=== PATIENT | male | born 1955 | race Caucasian/White ===

== ENCOUNTER → 2020-10-06 02:03 | Outpatient (CLI) | payer OTHER, MEDICARE, SELFPAY ==
[2020-10-07 14:52] LABS: SARS-CoV-2 RNA PCR Negative
== END ==
PROVIDERS: PCP Internal Medicine; Visit Provider Surgery
DX: Z01.812 Encounter for preprocedural laboratory examination (principal); Z20.822 Contact with and (suspected) exposure to COVID-19
CPT/HCPCS: C9803; U0003; U0005

== ENCOUNTER 2020-10-06 08:22 | Outpatient (CLI) | payer OTHER, MEDICARE, SELFPAY ==
--- NOTE | 2020-10-06 08:47 | ECG_ITS ---
Measurements Intervals [place] Rate: 70 P: 68 WV: 176 QRS: 34 QRSD: 97 T: 64 QT: 407 QTc: 440 Interpretive Statements SINUS RHYTHM ATRIAL AND VENTRICULAR PREMATURE COMPLEXES BORDERLINE ECG Electronically Signed On 10-06-2020 9:37:19 CDT by Jose Rodriguez D.O.
[2020-10-06 08:50] LABS: Hematocrit 35.8 % (42.0-52.0); Hemoglobin 11.7 g/dL (14.0-18.0)
[2020-10-06 09:00] LABS: INR 0.9; Potassium 4.7 mmol/L (3.4-5.0); Prothrombin Time 12.8 Seconds (11.1-14.7)
[2020-10-06 09:01] LABS: Partial Thromboplastin Time 30.2 SECONDS (22.3-36.8)
[2020-10-06 09:11] LABS: Anion Gap 4 mmol/L (8-16); Blood Urea Nitrogen 22 mg/dL (9-20); Calcium 9.4 mg/dL (8.4-10.2); Carbon Dioxide 28 mmol/L (22-30); Chloride 106 mmol/L (98-107); Estimated Glomerular Filt Rate > 60; Glucose 114 mg/dL (75-110); Sodium 138 mmol/L (137-145)
== END 2020-10-06 08:23 | disposition home or self-care (01) ==
PROVIDERS: PCP Internal Medicine; Visit Provider Anesthesiology
DX: E11.9 Type 2 diabetes mellitus without complications (principal); Z79.4 Long term (current) use of insulin; I12.9 Hypertensive chronic kidney disease with stage 1 through stage 4 chronic kidney disease, or unspecified chronic kidney disease; Z01.818 Encounter for other preprocedural examination; N18.30 Chronic kidney disease, stage 3 unspecified; R94.31 Abnormal electrocardiogram [ECG] [EKG]
CPT/HCPCS: 36415; 80048; 85014; 85018; 85610; 85730; 93005

== ENCOUNTER 2020-10-09 02:11 | Day surgery (SDC) | payer OTHER, MEDICARE, SELFPAY ==
[2020-10-05 12:53] VITALS: BMI 50.4
[2020-10-09 08:34] VITALS: BP 109/71; PULSE 69; RESP 16; TEMP 36.6; O2SAT 98
--- NOTE | 2020-10-09 08:38 | WPDHPUPDATE1 ---
History and Physical Update Update Date/Time: 10/09/20 08:38 History and Physical has been reviewed, including an updated exam of the patient. There are NO changes in the patient's condition. Risks, benefits, and alternatives have been discussed and questions answered. Patient agrees to proceed with procedure.
[2020-10-09] MEDS: LACTATED RINGERS 1,000 ML 30 ML IV CONT (09:12)
[2020-10-09 09:14] LABS: Glucose Point of Care 115 (65-105)
--- NOTE | 2020-10-09 09:35 | WPDANESEPPF ---
Anes - Initial Pre Proc Eval Procedure: Operation Date: 10/09/20 10:15 Proposed Procedures p Excision Of Back Mass - Rolando Alvarez DO Date/Time: 10/09/20 09:35 Surgeon: Rolando Alvarez DO Pre Op Diagnosis: Back Mass Patient Data Age: 65 Gender: M Height: 5 ft 11 in Weight: 162.4 kg Last Vital Signs Temp 98 F 10/09/20 08:34 Pulse 69 10/09/20 08:34 Resp 16 10/09/20 08:34 BP 109/71 10/09/20 08:34 Pulse Ox 98 10/09/20 08:34 Allergies Allergy/AdvReac Type Severity Reaction Status Date / Time cephalexin AdvReac Mild Itching Verified 10/09/20 08:48 Latex, Natural Rubber AdvReac Unknown STATED Verified 10/09/20 08:48 SKIN JUST CRACKED AND BROKE DOWN, NO RASH OR SOB Home Medications Medication Instructions Recorded Confirmed Type cholecalciferol (vitamin D3) 50 50 mcg PO DAILY 06/09/19 10/09/20 History mcg (2,000 unit) capsule furosemide 80 mg tablet 80 mg PO QAM 06/09/19 10/09/20 History lisinopril 5 mg tablet 5 mg PO DAILY 06/09/19 10/09/20 History polysaccharide iron complex 150 mg 150 mg PO HS 06/09/19 10/09/20 History iron capsule sodium bicarbonate 650 mg tablet 650 mg PO TID tablet 06/09/19 10/09/20 History sertraline 100 mg tablet 150 mg PO DAILY #135 tablet 06/04/20 10/09/20 Rx carvedilol 25 mg tablet 25 mg PO Q12H #180 tablet 09/07/20 10/09/20 Rx atorvastatin 20 mg PO QAM 10/05/20 10/09/20 History insulin NPH human semi-syn See Rx Instructions .ROUTE .COMPLEX 10/05/20 10/09/20 History [Novolin N (Semi-Synthetic)] levothyroxine 125 mcg PO QAM 10/05/20 10/09/20 History Laboratory Tests 10/09/20 09:10 POC Capillary Glucose 115 mg/dl H mg/dl (65-105) Patient hx anesthesia problems: none Family hx anesthesia problems: none PMFSH Past Medical History Medical History Essential (primary) hypertension Hypothyroidism Pure hypercholesterolemia Type 2 diabetes mellitus treated with insulin Surgical History Surgical History H/O umbilical hernia repair History of right knee joint replacement History of tonsillectomy Family History Family History Mother Patient's mother is Father Lung cancer Grandparent Cancer Other Cancer Social History Social History Smoking status: Former smoker Second hand tobacco smoke exposure: No Smoking end date: 06/01/13 Additional smoking assessment comments: STATES SMOKED 3/4-1PK/DAY/40+YRS, QUIT 2013 Alcohol intake: current Alcohol use details: STATES MAYBE 1-2 BEERS A MONTH Substance use: never Substance use type: does not use Living arrangements: with family Additional occupation/education comments: disabled Spiritual care concerns: No Anes - Eval Final PreProcedure Day of Procedure 10/09/20 09:35 Patient weight: super morbidly obese Heart: regular rate and rhythm Lungs: clear to auscultation Airway: Mallampati scale class III Neurological: alert and oriented Last oral intake: >/= 8 hours ASA classification: IV Emergent: no Anesthetic plan: proceed Anesthesia type and monitoring: general LMA and standard monitoring Informed Consent: The patient's anesthetic plan and its attendant risks and benefits were discussed with the patient/family/POA. Questions were solicited and answers provided to the satisfaction of the patient/family/POA.
[2020-10-09] MEDS: ceFAZolin 3 GM/D5W 100 ML 100 ML IVPB (10:03)
[2020-10-09] MEDS: LIDO 1%/EPINEPHRINE 1:100,000 50 ML VIAL 22 ML INFILTRATE (10:03)
[2020-10-09] MEDS: BACITRACIN OINTMENT 15 GM TUBE 1 APPLIC TOPICAL (10:46)
--- NOTE | 2020-10-09 10:46 | P.OP_ITS ---
Procedure Note - Detailed Date of procedure: 10/09/20 Pre-op diagnosis: Back Mass Post-op diagnosis: same Procedure performed: Excision 6 cm right upper back mass Description of procedure: * Procedure as well as risks benefits and alternatives were discussed with the patient. Written consent was obtained and placed in chart prior to procedure. Patient was brought back to surgical suite. He was placed in left lateral decubitus position. Time-out was done to confirm patient and procedure. IV sedation was administered by the Anesthesia Department. His upper back area was prepped and draped in sterile fashion using chlorhexidine prep. 1% lidocaine with epinephrine was infiltrated locally around the mass. A wide elliptical incision was made to encompass the entire mass using a 15 blade scalpel. The mass was sharply dissected free from the subcu attachments using the 15 blade scalpel. The mass was carefully sharply excised completely and was removed and sent to the lab for pathology. Hemostasis was then achieved with electrocautery. The wound bed was then irrigated with sterile saline. No other abnormalities were noted and hemostasis appeared adequate. The skin edges were then reapproximated using 3 0 nylon vertical mattress interrupted sutures. Bacitracin ointment was applied followed by 4 x 4 gauze and Medipore tape. The patient was then awakened from anesthesia and transferred to recovery. Anesthesia: MAC and local (1% lidocaine with epinephrine) Surgeon: Rolando Alvarez DO Estimated blood loss (mL): 20 Pathology: yes Complications: No immediate complications Condition: stable Disposition: same day Findings: This is a 65-year-old man who presented with a large back mass on his upper back. He states that this had been present for several years, but recently has become larger and slightly painful. There was concern that it might be an infected cyst in he was placed on a course of oral antibiotics. Currently there does not appear to be any active infection and discussions were made with the patient about treatment options. Decision was made to proceed with excision of the 6 cm back mass. The 6 cm right upper back mass was completely excised. This appeared to be a large inclusion cyst on the right upper back. The mass was completely excised and sent to the lab for pathology. No other abnormalities were noted.
[2020-10-09 11:01] VITALS: BP 126/82; PULSE 64; RESP 12; O2SAT 92
[2020-10-09 11:05] VITALS: O2SAT 96
[2020-10-09 11:15] LABS: Glucose Point of Care 114 (65-105)
[2020-10-09 11:31] VITALS: BP 134/55; PULSE 64; RESP 12; O2SAT 91
[2020-10-09 11:56] VITALS: BP 150/69; PULSE 62; RESP 12; O2SAT 91
== END 2020-10-09 12:01 | disposition home or self-care (01) ==
PROVIDERS: PCP Internal Medicine; Visit Provider Surgery
PROC: (CPT 11406; principal; 2020-10-09 10:15)
DX: L72.0 Epidermal cyst (principal); I10 Essential (primary) hypertension; E03.9 Hypothyroidism, unspecified; E78.00 Pure hypercholesterolemia, unspecified; E11.9 Type 2 diabetes mellitus without complications; Z79.4 Long term (current) use of insulin; Z87.891 Personal history of nicotine dependence; E66.01 Morbid (severe) obesity due to excess calories; Z68.42 Body mass index [BMI] 45.0-49.9, adult
CPT/HCPCS: 11406; 36415; 80048; 82948; 85014; 85018; 85610; 85730; 88304; 93005; A9270; C9803; J0690; J1100; J1940; J2405; J2704; J3010; J7120; U0003; U0005

== ENCOUNTER 2021-11-14 10:34 | Outpatient (CLI) | payer OTHER, MEDICARE, SELFPAY ==
--- NOTE | ~2021-11-14 | XR_ITS ---
EXAMINATION: XR lg joint inject/asp w image DATE: 11/14/2021 11:21 INDICATION: Left hip arthritis and pain TECHNIQUE: A time-out was performed to verify the patient's name, date of , and procedure to b e performed. The procedure including the risks, benefits, and alternatives was discussed with the pat ient. Risks discussed included bleeding and infection. The patient understood the risks and agreed to proceed. The skin overlying the left hip joint was prepped and draped in usual sterile fashion. An esthetic was administered with 1% lidocaine subcutaneously. A 22 G needle was advanced under fluoros copic guidance into the joint. Intra-articular position of the needle was confirmed with spontaneous reflux of minimal amount of clear straw-colored joint fluid. Subsequently, injectate consisting of 3 mL of a 2:1 mixture of 0.5% bupivacaine: 80 mg/mL Depo-Medrol for a total dosage of 80 mg Depo-Medro l was instilled. Washout of contrast was seen confirming intra-articular administration. The needle w as removed and the entry site was cleaned and dressed. There were no immediate complications. Fluoro scopy exposure time was 0.1 minutes. The total number of images was 1. FINDINGS: Real-time fluoroscopy demonstrates the needle in the left hip joint. Patient's pain prior t o procedure:02/08. Patient's pain following the procedure: 06/10. IMPRESSION: 1. Successful left hip joint injection of local anesthetic and steroid with decrease in the patient's presenting pain. Reviewed, dictated and finalized at location A. IMPRESSION: 1. Successful left hip joint injection of local anesthetic and steroid with dec rease in the patient's presenting pain.
== END 2021-11-14 10:35 | disposition home or self-care (01) ==
PROVIDERS: PCP Internal Medicine; Visit Provider Orthopaedic Surgery
DX: M16.12 Unilateral primary osteoarthritis, left hip (principal)
CPT/HCPCS: 20610; 77002; J1040; Q9966